=== PATIENT | male | born 1975 | race Caucasian/White ===

== ENCOUNTER 2018-04-17 09:48 | Emergency (ER) | payer SELFPAY ==
[2018-04-17 09:57] VITALS: BP 142/85; PULSE 81; TEMP 98.1; BMI 35.9
--- NOTE | 2018-04-17 10:41 | PDOC ---
History of Present Illness - General Chief Complaint: Rash Stated Complaint: Rash on penis Time Seen by Provider: 04/17/18 10:28 History Source: Patient Exam Limitations: No Limitations (pruritic rash on penis X 2wks, no sti concerns ) Past History - Travel Traveled outside of the country in the last 30 days: No Close contact w/someone who was outside of country & ill: No - Past Medical History Allergies/Adverse Reactions: Allergies Allergy/AdvReac Type Severity Reaction Status Date / Time No Known Allergies Allergy Verified 04/17/18 09:57 Home Medications: Ambulatory Orders Mupirocin Ointment [Bactroban 2% Ointment -] 1 applic TP TID 7 Days #30 grams Nystatin/Triamcinolone Top Oin [Mycolog II -] 1 applic TP BID 7 Days #30 grams 04/17/18 COPD: No Other medical history: left calf cyst - Suicide/Smoking/Psychosocial Hx Smoking History: Never smoked Information on smoking cessation initiated: No Hx Alcohol Use: No Drug/Substance Use Hx: No Substance Use Type: None Review of Systems - Review of Systems Able to Perform ROS?: Yes Is the patient limited Lao proficient: No Constitutional: No: Chills, Fever ABD/GI: No: Abdominal Distended, Blood Streaked Bowels : No: Burning, Dysuria, Discharge, Frequency, Flank Pain, Hematuria, Incontinence, Pain, Urgency, Testicular Mass, Testicular Swelling, Testicular Pain (penile glans pruritus) *Physical Exam - Vital Signs Last Vital Signs Temp Pulse Resp BP Pulse Ox 98.1 F 81 17 142/85 99 04/17/18 09:55 04/17/18 09:55 04/17/18 09:55 04/17/18 09:55 04/17/18 09:55 - Physical Exam General Appearance: Yes: Nourished Respiratory/Chest: positive: Lungs Clear, Normal Breath Sounds Cardiovascular: positive: Regular Rhythm, Regular Rate, S1, S2 Male Genitalia: positive: other (uncircumcised, + red erosions/erythema noted in penile glans, no penile discharge noted). 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 *DC/Admit/Observation/Transfer Diagnosis at time of Disposition: Balanitis - Discharge Dispostion Disposition: HOME Condition at time of disposition: Stable Decision to Admit order: No - Prescriptions Prescriptions: Mupirocin Ointment [Bactroban 2% Ointment -] 1 applic TP TID 7 Days #30 grams Nystatin/Triamcinolone Top Oin [Mycolog II -] 1 applic TP BID 7 Days #30 grams - Referrals - Patient Instructions Printed Discharge Instructions: DI for Balanitis - Post Discharge Activity Forms/Work/School Notes: Back to Work
== END 2018-04-17 10:56 | disposition home or self-care (01) ==
LOC: JERFT 09:48
DX: N48.1 Balanitis (principal)
CPT/HCPCS: 99281-25